=== PATIENT | female | born 1935 | race Caucasian/White ===

== ENCOUNTER 2016-02-28 10:28 | Outpatient (CLI) | payer MEDICARE, OTHER ==
[2016-02-28] VITALS (9 sets, daily range): BP systolic 147–178; BP diastolic 49–91; PULSE 91–107; TEMP 97.8–98.3
[2016-02-28] MEDS ORDERED: COZAAR100 MG PO (11:52)
[2016-02-28] MEDS ORDERED: ASPIRIN E.C. 8181 MG PO (11:52)
[2016-02-28] MEDS ORDERED: NORVASC 10MG10 MG PO (11:53)
[2016-02-28] MEDS ORDERED: METAGLIP PO (11:54)
[2016-02-28] MEDS ORDERED: PRILOSEC 20MG20 MG PO (11:54)
[2016-02-28] MEDS ORDERED: IRON325 MG PO (11:55)
[2016-02-28] MEDS ORDERED: LANTUS100 U/ML SQ (11:56)
[2016-02-28] MEDS ORDERED: CALCIUM 600MG+D1 TAB PO (11:59)
[2016-02-28] MEDS ORDERED: B-121000 MCG PO (12:19)
[2016-02-28] MEDS ORDERED: CANA100T PO (12:20)
[2016-02-28] MEDS ORDERED: NORCO 325 MG-51 TAB PO (12:20)
[2016-02-28] MEDS ORDERED: COLACE 100100 MG/CAP PO (12:20)
[2016-02-28] MEDS ORDERED: MOBIC 7.5MG7.5 MG PO (12:21)
[2016-02-28] MEDS ORDERED: HYGROTON 2525 MG/TAB PO (12:22)
[2016-02-28] MEDS ORDERED: TYLENOL 500MG500 MG PO (12:22)
[2016-02-28] MEDS ORDERED: FLONASEALLERGY NS (12:23)
== END 2016-02-28 16:04 | disposition home or self-care (01) ==
LOC: COL.RAD 10:28
DX: S32.018A Other fracture of first lumbar vertebra, initial encounter for closed fracture (principal); X58.XXXA Exposure to other specified factors, initial encounter
CPT/HCPCS: C1713; J2250; J3010; J7120

== ENCOUNTER → 2017-01-28 | Outpatient (CLI) | payer MEDICARE, OTHER ==
[~2017-01-28] VITALS: Ht 167.6 cm; Wt 78.4 kg
[~2017-01-28] MED LIST: ASPIRIN E.C. 8181 MG PO; B-121000 MCG PO; CALCIUM 600MG+D1 TAB PO; CANA100T PO; COLACE 100100 MG/CAP PO; COZAAR100 MG PO; FLONASEALLERGY NS; HYGROTON 2525 MG/TAB PO; IRON325 MG PO; LANTUS100 U/ML SQ; METAGLIP PO; MOBIC 7.5MG7.5 MG PO; NASONEX SPRAY17 GM NS; NEURONTIN300 MG/CAP PO; NORCO 325 MG-51 TAB PO; NORVASC 10MG10 MG PO; PRILOSEC 20MG20 MG PO; TOPROL XL 25MG25 MG PO; TYLENOL 500MG500 MG PO; ULTRAM 50MG TAB50 MG PO
[2017-01-28 12:21] VITALS: BP 145/72; PULSE 96
[2017-01-28 13:30] VITALS: BP 164/74; PULSE 90
== END ==
LOC: COL.RAD 11:43
DX: M54.17 Radiculopathy, lumbosacral region (principal)
CPT/HCPCS: J3301